=== PATIENT | female | born 1990 | race Caucasian/White ===

== ENCOUNTER → 2020-07-07 | Outpatient (CLI) | payer OTHER ==
[~2020-07-07] MED LIST: COLACE 100MG C100 MG PO; IBUPROFEN600 MG PO; LORTAB 5-325 M1 EACH PO; PRENATAL VITAM1 EAC8 PO; PREVACID 24HR15 MG PO; TRANDATE 100 M100 MG PO
== END ==
LOC: EXRD 06-27 10:00
DX: E78.1 Pure hyperglyceridemia (principal)
CPT/HCPCS: 76705

== ENCOUNTER 2021-12-24 08:09 | Emergency (ER) | payer OTHER ==
[2021-12-24 10:39] LABS: HEMOGLOBIN 15.7 gm/dl (12.3-15.3); RED BLOOD COUNT 4.81 M/UL (4.00-5.10); WHITE BLOOD COUNT 7.6 K/UL (4.5-11.0)
[2021-12-24 11:17] LABS: BUN/CREATININE RATIO 16 (0-10)
== END 2021-12-24 13:55 | disposition home or self-care (01) ==
LOC: ER1 08:09
PROVIDERS: Family Medicine
DX: R07.89 Other chest pain (principal); E87.6 Hypokalemia; I10 Essential (primary) hypertension; K21.9 Gastro-esophageal reflux disease without esophagitis; I25.10 Atherosclerotic heart disease of native coronary artery without angina pectoris; Z20.822 Contact with and (suspected) exposure to COVID-19
CPT/HCPCS: 0240U; 71045; 80053; 81001; 82550; 82553; 84439; 84443; 84484; 84703; 85025; 93005; 99285